=== PATIENT | male | born 1935 | race Hispanic/Latino ===

== ENCOUNTER 2023-02-11 08:18 | Observation (INO) | payer MEDICARE ==
[~2023-02-11] VITALS: Ht 165.1 cm; Wt 78.0 kg
[2023-02-11 09:02] LABS: BASOPHILS % (AUTO) 0.1 % (0.0-5.0); EOSINOPHILS % (AUTO) 2.1 % (0.0-8.0); HEMATOCRIT 37.3 % (42-54); LYMPHOCYTES % (AUTO) 9.1 % (21.0-51.0); MEAN CORPUSCULAR HEMOGLOBIN 29.6 pg (27.0-33.0); MEAN CORPUSCULAR VOLUME 86.9 fL (79-99); MONOCYTES % (AUTO) 9.1 % (3.0-13.0); NEUTROPHILS % (AUTO) 79.3 % (40.0-77.0); PLATELET COUNT (AUTO) 285 K/uL (130-400); RED BLOOD CELL COUNT(AUTO) 4.29 MIL/uL (4.50-6.20); RED CELL DISTRIBUTION WIDTH 12.3 % (11.0-15.5); WHITE BLOOD COUNT (AUTO) 7.1 K/uL (4.8-10.8)
[2023-02-11 09:12] LABS: ALBUMIN 2.6 g/dL (3.5-5.0); CREATININE 1.1 mg/dL (0.5-1.5); TOTAL PROTEIN, SERUM 6.9 g/dL (6.0-8.3)
[2023-02-11] MEDS ORDERED: 0.9%NACL 1000ML 1,000 ML IV ONE (09:30)
[2023-02-11] MEDS ORDERED: ONDANSETRON 4MG INJ IVP ONE (09:30)
[2023-02-11 10:14] LABS: APPEARANCE,URINE CLEAR (CLEAR); BILIRUBIN,URINE NEGATIVE (NEGATIVE); COLOR,URINE YELLOW (YELLOW); GLUCOSE, URINE (UA) NEGATIVE (NEGATIVE); KETONES,URINE NEGATIVE (NEGATIVE); LEUKOCYTE ESTERASE ,URINE 25 Leu/uL (NEGATIVE); NITRATE,URINE NEGATIVE (NEGATIVE); OCCULT BLOOD,URINE NEGATIVE (NEGATIVE); PH,URINE 6.5 (5.0-8.0); PROTEIN,URINE 30 mg/dL (NEGATIVE); UROBILINOGEN,URINE 0.2 mg/dL (0.2-1.0)
[2023-02-11 10:29] LABS: BACTERIA,URINE RARE /HPF (None Seen); MUCUS,URINE RARE LPF (None Seen); SQUAMOUS EPITHELIAL CELL,UR RARE /HPF (0-2)
[2023-02-11] MEDS ORDERED: KCL 20 MEQ ERTAB PO ONE (11:00)
[2023-02-11] MEDS ORDERED: ZOSYN 3.375GM +NS 50ML IVPB ONE (11:30)
[2023-02-11] MEDS ORDERED: KAYEXALATE 15GM/60ML PO PRN (12:30)
[2023-02-11] MEDS ORDERED: ZOSYN 3.375GM +NS 50ML IVPB SCH (12:30)
[2023-02-11] MEDS ORDERED: ACETAMINOPHEN 325 MG TAB PO PRN (12:30)
[2023-02-11] MEDS ORDERED: HYDRALAZINE 20MG/ML VIAL IV PRN (12:30)
[2023-02-11] MEDS ORDERED: LACTULOSE 20 GM/30 ML UDCUP PO PRN (12:30)
[2023-02-11] MEDS ORDERED: ONDANSETRON 4MG INJ IVP PRN (12:30)
[2023-02-11] MEDS ORDERED: DOCUSATE SODIUM 100 MG CAP PO PRN (12:30)
[2023-02-11] MEDS: ZOSYN 3.375GM +NS 50ML IVPB SCH ×2 (13:00→22:05)
[2023-02-11] MEDS: LACTATED RINGERS 1000ML 1,000 ML IV SCH ×2 (13:35→22:06)
[2023-02-11] MEDS ORDERED: 0.9%NACL 50ML IV SCH (15:00)
[2023-02-11] MEDS: METOCLOPRAMIDE 5 MG TABLET PO SCH ×2 (17:43→22:05)
[2023-02-12] VITALS (29 sets, daily range): BP systolic 108–148; BP diastolic 49–89
[2023-02-12] MEDS: LACTATED RINGERS 1000ML 1,000 ML IV SCH ×3 (03:44→21:17)
[2023-02-12] MEDS: ZOSYN 3.375GM +NS 50ML IVPB SCH ×3 (04:01→21:18)
[2023-02-12 05:37] LABS: HEMATOCRIT 36.5 % (42-54); MEAN CORPUSCULAR HEMOGLOBIN 30.2 pg (27.0-33.0); MEAN CORPUSCULAR HGB CONC 32.6 g/dL (32.0-36.0); MEAN CORPUSCULAR VOLUME 92.6 fL (79-99); RED BLOOD CELL COUNT(AUTO) 3.94 MIL/uL (4.50-6.20); RED CELL DISTRIBUTION WIDTH 12.5 % (11.0-15.5); WHITE BLOOD COUNT (AUTO) 6.9 K/uL (4.8-10.8)
[2023-02-12 06:12] LABS: CREATININE 1.1 mg/dL (0.5-1.5); MAGNESIUM 2.4 mg/dL (1.80-2.40); PHOSPHORUS 3.4 mg/dL (2.5-4.9); POTASSIUM 3.3 mmol/L (3.5-5.1); THYROID STIMULATING HORMONE 3.58 uIU/mL (0.36-3.74)
[2023-02-12] MEDS: METOCLOPRAMIDE 5 MG TABLET PO SCH ×4 (06:34→21:17)
[2023-02-12] MEDS: PANTOPRAZOLE 40 MG TAB DR PO SCH (09:00)
[2023-02-12] MEDS ORDERED: SERT-438 PO (09:20)
[2023-02-12] MEDS ORDERED: DOXA8TAB81 PO (09:20)
[2023-02-12] MEDS ORDERED: ATOR40TA71 PO (09:20)
[2023-02-12] MEDS ORDERED: DONE10TA43 PO (09:20)
[2023-02-12] MEDS ORDERED: POTASSIUM CHLORIDE 20MEQ/100ML 100 ML IV PRN (11:30)
[2023-02-12] MEDS ORDERED: POTASSIUM CHLORIDE 10% ELIXIR 20 MEQ/15 ML UDCUP PO PRN (11:30)
[2023-02-12] MEDS ORDERED: BUPIVACAINE/PF 0.5% 30ML VIAL ONE (12:58)
[2023-02-12] MEDS ORDERED: SUCCINYLCHOLINE CHLORIDE 20 MG/ML 10 ML VIAL ONE (13:00)
[2023-02-12] MEDS ORDERED: DEXAMETHASONE SOD PHOSPHATE 10MG/ML 1ML VIAL ONE (13:00)
[2023-02-12] MEDS ORDERED: LIDOCAINE PF 100MG/5ML (2%) SYRINGE 5ML ONE (13:00)
[2023-02-12] MEDS ORDERED: ROCURONIUM 10MG/1ML SYR 10 MG/ML ML ONE (13:01)
[2023-02-12] MEDS ORDERED: MIDAZOLAM HCL 1 MG/ML 2ML VIAL ONE (13:01)
[2023-02-12] MEDS ORDERED: NEOSTIGMINE 5MG/5ML SYR IV ONE (13:01)
[2023-02-12] MEDS ORDERED: GLYCOPYRROLATE 1 MG/5 ML SYRINGE ONE (13:01)
[2023-02-12] MEDS ORDERED: ONDANSETRON 4MG INJ ONE (13:01)
[2023-02-12] MEDS ORDERED: PROPOFOL 10 MG/ML 20ML VIAL IV ONE (13:01)
[2023-02-12] MEDS ORDERED: FENTANYL CITRATE PF 50 MCG/1 ML 2ML VIAL ONE (13:03)
[2023-02-12] MEDS ORDERED: EPHEDRINE SULFATE 50 MG/ML AMPULE ONE (13:32)
[2023-02-12] MEDS ORDERED: MEPERIDINE-PF 25 MG/ML SYG ONE ×2 (14:18→15:00)
[2023-02-12] MEDS ORDERED: ONDANSETRON 4MG INJ IVP PRN (17:00)
[2023-02-12] MEDS ORDERED: MORPHINE 4 MG SYG IVP PRN (17:00)
[2023-02-12] MEDS: KCL 20 MEQ ERTAB PO PRN ×3 (18:09→23:23)
[2023-02-12] MEDS: ATORVASTATIN 40 MG TABLET PO SCH (21:17)
[2023-02-12] MEDS: DONEPEZIL HCL 5 MG TAB PO SCH (21:18)
[2023-02-13 03:39] VITALS: BP 112/58
[2023-02-13] MEDS: ZOSYN 3.375GM +NS 50ML IVPB SCH ×3 (05:41→20:49)
[2023-02-13 06:25] LABS: BASOPHILS % (AUTO) 0.2 % (0.0-5.0); EOSINOPHILS % (AUTO) 3.3 % (0.0-8.0); HEMATOCRIT 37.1 % (42-54); LYMPHOCYTES % (AUTO) 9.5 % (21.0-51.0); MEAN CORPUSCULAR HEMOGLOBIN 29.7 pg (27.0-33.0); MEAN CORPUSCULAR HGB CONC 33.4 g/dL (32.0-36.0); MONOCYTES % (AUTO) 6.7 % (3.0-13.0); NEUTROPHILS % (AUTO) 79.5 % (40.0-77.0); PLATELET COUNT (AUTO) 298 K/uL (130-400); RED BLOOD CELL COUNT(AUTO) 4.17 MIL/uL (4.50-6.20); RED CELL DISTRIBUTION WIDTH 12.6 % (11.0-15.5); WHITE BLOOD COUNT (AUTO) 10.3 K/uL (4.8-10.8)
[2023-02-13 06:38] LABS: ALBUMIN 2.2 g/dL (3.5-5.0); CREATININE 0.9 mg/dL (0.5-1.5); POTASSIUM 3.9 mmol/L (3.5-5.1); TOTAL PROTEIN, SERUM 5.6 g/dL (6.0-8.3)
[2023-02-13 08:00] VITALS: BP 147/54
[2023-02-13] MEDS: METOCLOPRAMIDE 5 MG TABLET PO SCH ×4 (08:01→20:49)
[2023-02-13] MEDS: SERTRALINE HCL 50 MG TABLET PO SCH (08:02)
[2023-02-13] MEDS: DOXAZOSIN MESYLATE 2 MG TABLET PO SCH (08:02)
[2023-02-13] MEDS: PANTOPRAZOLE 40 MG TAB DR PO SCH (08:02)
[2023-02-13] MEDS: LACTATED RINGERS 1000ML 1,000 ML IV SCH ×2 (11:29→20:52)
[2023-02-13 12:00] VITALS: BP 122/46
[2023-02-13 16:00] VITALS: BP 127/62
[2023-02-13 19:35] VITALS: BP 119/50
[2023-02-13] MEDS: ATORVASTATIN 40 MG TABLET PO SCH (20:49)
[2023-02-13] MEDS: 0.9%NACL 50ML 50 ML IV SCH (20:49)
[2023-02-13] MEDS: DONEPEZIL HCL 5 MG TAB PO SCH (20:50)
[2023-02-13 23:54] VITALS: BP 135/50
[2023-02-14 03:27] VITALS: BP 146/55
[2023-02-14] MEDS: 0.9%NACL 50ML 50 ML IV SCH (05:10)
[2023-02-14] MEDS: ZOSYN 3.375GM +NS 50ML IVPB SCH (05:10)
[2023-02-14 08:00] VITALS: BP 102/59
[2023-02-14] MEDS: DOXAZOSIN MESYLATE 2 MG TABLET PO SCH (08:57)
[2023-02-14] MEDS: METOCLOPRAMIDE 5 MG TABLET PO SCH ×2 (08:57→11:38)
[2023-02-14] MEDS: PANTOPRAZOLE 40 MG TAB DR PO SCH (08:57)
[2023-02-14] MEDS: SERTRALINE HCL 50 MG TABLET PO SCH (08:57)
[2023-02-14] MEDS: LACTATED RINGERS 1000ML 1,000 ML IV SCH (09:01)
[2023-02-14] MEDS ORDERED: AMOX-426 PO (09:08)
[2023-02-14 12:00] VITALS: BP 110/50
== END 2023-02-14 13:45 | disposition home or self-care (01) ==
LOC: EDH 08:18 → EDHIP 12:07 → 3AH 22:30
PROVIDERS: ADMIT Internal Medicine; ATTEND Internal Medicine
DX: K80.00 Calculus of gallbladder with acute cholecystitis without obstruction (principal); Z20.822 Contact with and (suspected) exposure to COVID-19; I10 Essential (primary) hypertension; K42.9 Umbilical hernia without obstruction or gangrene; K52.9 Noninfective gastroenteritis and colitis, unspecified; K66.0 Peritoneal adhesions (postprocedural) (postinfection); K76.0 Fatty (change of) liver, not elsewhere classified; K82.A1 Gangrene of gallbladder in cholecystitis; Z79.899 Other long term (current) drug therapy; Z98.890 Other specified postprocedural states
CPT/HCPCS: 96361 ×3; 96365; 96366 ×5; 96375; 99285; 84484; 80053 ×2; 83690; 85025 ×2; 81001; 36415 ×3; 87635; 74177; 76705; 93005; 47562; 49591; 84443; 83735; 84100; 80048; 85027; G0378 ×71; J7120; J2405 ×2; J2543 ×9; A6207; J7030; J3010; J3490 ×3; J1100; J2710; J0330; J2001; J2250; J2704; J2175 ×2; A6206; C1769 ×3; A4649 ×2; A4223; A4222; A4216